=== PATIENT | male | born 1960 | race African-American/Black ===

== ENCOUNTER 2018-06-22 05:12 | Inpatient (IN) | payer OTHER ==
[2018-06-22] VITALS (11 sets, daily range): BP systolic 120–171; BP diastolic 69–104
[~2018-06-22] VITALS: Ht 172.7 cm; Wt 93.0 kg
[~2018-06-22 05:12] MED LIST: ALBUTEROL SULF8.5 GM INH; ATORVASTATIN CA40 MG ORAL; CARVEDILOL6.25 MG ORAL; FUROSEMIDE20 M1 ORAL; LISINOPRIL10 MG ORAL; POTASSIUM CHLO10 ME3 ORAL; SPIRONOLACTONE25 MG ORAL
[2018-06-22] MEDS ORDERED: LR 1000ml 1,000 ML IVLG SCH (06:32)
[2018-06-22] MEDS ORDERED: Propofol 1,000mg/ 100ml btl IV ONE ×2 (06:36→07:30)
[2018-06-22] MEDS ORDERED: Zemuron 50mg/5ml Inj IV ONE (06:37)
[2018-06-22] MEDS ORDERED: Midazolam 2mg/2ml Inj IVP PRN (06:45)
[2018-06-22] MEDS ORDERED: Metoclopramide 10mg/2ml Inj IVP PRN (06:45)
[2018-06-22] MEDS ORDERED: Norco 5mg/325mg tab ORAL PRN (06:45)
[2018-06-22] MEDS ORDERED: Labetalol 5mg/ml 20ml vial IV PRN (06:45)
[2018-06-22] MEDS ORDERED: Acetaminophen (Non formulary) 100 ML IV ONE (06:45)
[2018-06-22] MEDS ORDERED: Ketorolac 30mg Inj IV PRN ×2 (06:45)
[2018-06-22] MEDS ORDERED: LORazepam Inj 2mg/ml 1ml IV PRN (06:45)
[2018-06-22] MEDS ORDERED: fentaNYL 100 mcg/2 mL IV PRN (06:45)
[2018-06-22] MEDS ORDERED: Atropine Inj 1mg/10ml Syr IV PRN (06:45)
[2018-06-22] MEDS ORDERED: HYDROcodone/Acetamin 7.5/325 tab ORAL PRN (06:45)
[2018-06-22] MEDS ORDERED: Hydromorphone 0.5mg/0.5ml inj IVP PRN (06:45)
[2018-06-22] MEDS ORDERED: DiphenhydrAMINE 50mg/ml Inj IVP PRN ×2 (06:45→15:30)
[2018-06-22] MEDS ORDERED: oxyCODONE HCL/Acetaminophen 5/325mg ORAL PRN (06:45)
--- NOTE | 2018-06-22 07:02 | Anethesia Preoperative Eval ---
Anesthesia Pre-op PMH/ROS General Date of Evaluation: Jun 22, 2018 Time of Evaluation: 07:31 Anesthesiologist: Ander ASA Score: ASA 3 Mallampati Score Class I : Soft palate, uvula, fauces, pillars visible Class II: Soft palate, uvula, fauces visible Class III: Soft palate, base of uvula visible Class IV: Only hard plate visible Mallampati Classification: Class II Surgeon: Rick Diagnosis: Back Pain Surgical Procedure: PLIF L3-S1 Anesthesia History: none Family History: no anesthesia problems Allergies: Coded Allergies: No Known Allergies (Unverified , 06/22/18) Medications: see eMAR Past Medical History Cardiovascular: Reports: HTN, CAD - CHF, other - HL Pulmonary: Reports: FELECIA Neurologic/Psychiatric: Reports: TIA Other: obesity - BMI 33 PSxH Narrative: R Shoulder Sx 2018 Anesthesia Pre-op Phys. Exam Physician Exam Last Vital Signs Date Time Temp Pulse Resp B/P (MAP) Pulse Ox O2 Delivery O2 Flow Rate FiO2 06/22/18 06:01 Room Air 06/22/18 06:00 97.5 62 18 124/69 (87) 99 97.5 Constitutional: NAD Neurologic: CN 2-12 intact Cardiovascular: RRR Respiratory: CTA Gastrointestinal: S/NT/ND Airway Exam Mallampati Score: Class II MO: full ROM: limited Teeth: missing, intact Anesthesia Pre-op A/P Risk Assessment & Plan Assessment: ASA 3 Plan: GA, SED, GlideScope Go Status Change Before Surgery: No Pre-Antibiotics Dru Grams Ancef IV Given Within 1 Hr of Incision: Yes Time Given: 08:01 Brain Worthington MD Jun 22, 2018 07:02
--- NOTE | 2018-06-22 07:03 | Immediate Post-Op Evaluation ---
Immediate Post-Op Evalulation Immediate Post-Op Evalulation Procedure: PLIF L3-S1 Date of Evaluation: Jun 22, 2018 Time of Evaluation: 15:49 IV Fluids: 900 LR Blood Products: 0 Estimated Blood Loss: 200 Urinary Output: 200 Blood Pressure Systolic: 171 Blood Pressure Diastolic: 102 Pulse Rate: 71 Respiratory Rate: 16 O2 Sat by Pulse Oximetry: 100 Temperature (Fahrenheit): 97 Pain Score (1-10): 3 Nausea: No Vomiting: No Complications 0 Patient Status: awake, reacts, patent, extubated, none Hydration Status: adequate Dru Grams Ancef IV Given Within 1 Hr of Incision: Yes Time Given: 08:01 Brain Worthington MD Jun 22, 2018 07:03
[2018-06-22] MEDS ORDERED: Dexamethasone 4mg/ml vial ONE (07:04)
[2018-06-22] MEDS ORDERED: Lidocaine 1% MPF 10mg/ml 5ml ONE ×2 (07:04→14:11)
[2018-06-22] MEDS ORDERED: Sodium Chloride 10ml vial INJ ONE (07:04)
[2018-06-22] MEDS ORDERED: Vancomycin 1gm inj IVPB ONE (07:07)
[2018-06-22] MEDS ORDERED: Thrombin 5000 units TOPIC ONE (07:08)
[2018-06-22] MEDS ORDERED: Thrombin 5000 units spray kit TOPIC ONE (07:08)
[2018-06-22] MEDS ORDERED: Gelfoam Absorbable 1gm powder pkt TOPIC ONE (07:08)
[2018-06-22] MEDS ORDERED: Bupivacaine 0.5% Inj 30 ml vial INJ ONE (07:08)
[2018-06-22] MEDS ORDERED: Gelfoam Size TOPIC ONE (07:08)
[2018-06-22] MEDS ORDERED: EPINEPHrine 1mg/1ml Amp ONE (07:09)
[2018-06-22] MEDS ORDERED: Bacitracin 50000 Units Vial ONE ×2 (07:09→14:00)
[2018-06-22] MEDS ORDERED: fentaNYL 100 mcg/2 mL IV ONE ×3 (07:23→13:29)
[2018-06-22] MEDS ORDERED: Sterile Water Irrig 1000ml IRRIG ONE (07:30)
[2018-06-22] MEDS ORDERED: LR 1000ml ONE (07:30)
[2018-06-22] MEDS ORDERED: NS Irrig 1000ml ONE (07:30)
--- NOTE | 2018-06-22 07:41 | Pre-Procedure Note/Attestation ---
Pre-Procedure Note/Attestation Complete Prior to Procedure Planned Procedure: bilateral Procedure Narrative: L3-S1 left PLIF with extended decompression Indications for Procedure Pre-Operative Diagnosis: L3-S1 stenosis Attestation I attest that I discussed the nature of the procedure; its benefits; risks and complications; and alternatives (and the risks and benefits of such alternatives ), prior to the procedure, with the patient (or the patient's legal patient accounting representative). I attest that, if there was a reasonable possibility of needing a blood transfusion, the patient (or the patient's legal patient accounting representative) was given the [facility] standardized written summary, pursuant to the Bertram Diogo Blood Safety Act ([place] Health and Safety Code # 1645, as amended). I attest that I re-evaluated the patient just prior to the surgery and that there has been no change in the patient's H&P, except as documented below: Ricardo Cabrera Jun 22, 2018 07:41
[2018-06-22] MEDS ORDERED: ePHEDrine 50mg/ml Inj ONE (07:55)
[2018-06-22] MEDS ORDERED: Lidocaine 1% Plain 30 ml INJ ONE ×3 (07:56→12:10)
[2018-06-22] MEDS ORDERED: Propofol 200mg/20ml IV ONE (14:11)
[2018-06-22] MEDS ORDERED: Neostigmine 1mg/ml 10ml Inj ONE (14:47)
[2018-06-22] MEDS ORDERED: Glycopyrrolate 0.2mg/ml 1ml Vial ONE (14:47)
[2018-06-22] MEDS ORDERED: NS w/KCl 20mEq 1,000 ML IV SCH (15:25)
[2018-06-22] MEDS ORDERED: Rate Change PCA 1 Each MISC PRN (15:30)
[2018-06-22] MEDS ORDERED: Naloxone 0.4mg/ml Inj IVP PRN (15:30)
[2018-06-22] MEDS ORDERED: PCA Education Pamphlet MISC ONE (15:30)
[2018-06-22] MEDS ORDERED: PCA HYDROmorphone 1mg/ml 30 ML IV PRN ×2 (15:30)
--- NOTE | 2018-06-22 15:35 | Brief Operative Note ---
Immediate Post Operative Note Operative Note Pre-op Diagnosis: L3-S1 stenosis Procedure: L3-S1 PLIF Post-op Diagnosis: same as pre-op Surgeon: Dr Cabrera Dental Therapist: Dr Owen Anesthesiologist: Dr Worthington Anesthesia: general Specimen: yes Complications: none Condition: stable Fluids: NA Estimated Blood Loss: volume - 400 ml Drains: none Implant(s) used?: Yes - Next spine Ricardo Cabrera Jun 22, 2018 15:35
--- NOTE | 2018-06-22 16:03 | Diagnostic Imaging Report ---
Indication: Pain, intraoperative imaging Technique: Intraoperative images Total fluoroscopy time 11.1 seconds. Total dose 3.87 mg Number of images: 3 Comparison: none Findings: Intraoperative images demonstrate surgical tool projected posterior to what is presumably the L4-5 disc. Subsequent images demonstrate posterior fusion hardware bridging L3-S1, and disc spacers at L3-4, L4-5, and L5-S1 Impression: Intraoperative imaging, as described
[2018-06-22] MEDS ORDERED: ceFAZolin sod 1 GM in D5W 55 ML IV SCH (18:00)
[2018-06-22] MEDS ORDERED: Docusate 100mg cap ORAL SCH (18:00)
[2018-06-22] MEDS: Methocarbamol 750mg tab ORAL SCH ×2 (18:35→20:59)
[2018-06-22] MEDS ORDERED: PCA shift volume MISC SCH (19:00)
[2018-06-22] MEDS ORDERED: oxyCONTIN 10mg tab ORAL SCH (21:00)
[2018-06-22] MEDS ORDERED: Carvedilol 6.25mg Tab ORAL SCH (21:00)
[2018-06-22] MEDS ORDERED: Atorvastatin 20mg tab ORAL SCH (21:00)
--- NOTE | 2018-06-22 23:52 | General Progress Note ---
Assessment/Plan Status Narrative PMHchf hypertenison FELECIA Assessment/Plan hypertenison chf diastolic dysfunction sleep panea obesity difficulty wtih the mckinney cath Subjective Date patient seen: Jun 22, 2018 Time patient seen: 19:10 Constitutional: Reports: no symptoms HEENT: Reports: no symptoms Cardiovascular: Reports: no symptoms Allergies: Coded Allergies: No Known Allergies (Unverified , 06/22/18) Subjective patient was seen poastop and at thzat time no sob no berkley stpain Objective Last 24 Hour Vital Signs Date Time Temp Pulse Resp B/P (MAP) Pulse Ox O2 Delivery O2 Flow Rate FiO2 06/22/18 23:30 97.8 83 20 152/86 (108) 100 97.8 06/22/18 21:00 Nasal Cannula 2.0 06/22/18 21:00 79 120/75 06/22/18 20:20 99 Nasal Cannula 3.0 32 06/22/18 20:20 Nasal Cannula 3.0 32 06/22/18 20:00 97.5 79 19 120/75 (90) 100 97.5 06/22/18 20:00 19 06/22/18 17:30 18 06/22/18 17:00 Nasal Cannula 3.0 06/22/18 17:00 97.8 61 16 153/83 100 Nasal Cannula 3 100 97.8 06/22/18 17:00 98.2 65 18 154/77 (102) 100 98.2 06/22/18 17:00 98.2 65 18 160/79 (106) 100 98.2 06/22/18 17:00 18 06/22/18 16:45 56 15 150/82 100 Nasal Cannula 3 100 06/22/18 16:30 59 14 157/85 100 Nasal Cannula 3 100 06/22/18 16:30 18 06/22/18 16:15 15 06/22/18 16:15 63 15 154/81 100 Nasal Cannula 3 100 06/22/18 16:00 14 06/22/18 16:00 67 16 157/85 100 Simple Mask 6 100 06/22/18 15:50 62 18 154/87 100 Simple Mask 6 100 06/22/18 15:50 18 06/22/18 15:45 63 14 169/98 100 Simple Mask 6 100 06/22/18 15:38 97.2 72 16 171/104 100 Simple Mask 6 100 97.2 06/22/18 15:38 18 06/22/18 15:38 206.6 71 16 100 06/22/18 06:01 Room Air 06/22/18 06:00 97.5 62 18 124/69 (87) 99 97.5 Intake and Output 06/21/18 06/22/18 19:00 07:00 # Voids 1 Laboratory Tests 06/22/18 23:29: Troponin I [Pending] Height (Feet): 5 Height (Inches): 8.00 Weight (Pounds): 205 General Appearance: WD/WN Cardiovascular: normal rate, regular rhythm, no JVD Respiratory/Chest: lungs clear Abdomen: soft Lincoln Macias MD Jun 22, 2018 23:52
[2018-06-23] VITALS (24 sets, daily range): BP systolic 86–146; BP diastolic 37–87
[2018-06-23 00:05] LABS: ANION GAP 6 mmol/L (5-15); BLOOD UREA NITROGEN 18 mg/dL (7-18); CALCIUM 8.4 MG/DL (8.5-10.1); CARBON DIOXIDE 27 MMOL/L (21-32); CHLORIDE 103 MMOL/L (98-107); CREATININE 1.5 MG/DL (0.55-1.30); POTASSIUM 4.7 MMOL/L (3.5-5.1); SODIUM 136 MMOL/L (136-145)
[2018-06-23 00:12] LABS: ALANINE AMINOTRANSFERASE 50 U/L (12-78); ALBUMIN 3.4 G/DL (3.4-5.0); ALBUMIN/GLOBULIN RATIO 0.9 (1.0-2.7); ALKALINE PHOSPHATASE 76 U/L (46-116); ASPARTATE AMINO TRANSFERASE 169 U/L (15-37); BILIRUBIN,TOTAL 0.5 MG/DL (0.2-1.0)
[2018-06-23 00:15] LABS: BASOPHILS % (AUTO) 0.2 % (0.0-2.0); EOSINOPHILS % (AUTO) 0.1 % (0.0-3.0); HEMATOCRIT 36.5 % (42.0-52.0); HEMOGLOBIN 12.2 G/DL (14.2-18.0); LYMPHOCYTES % (AUTO) 5.6 % (20.0-45.0); MEAN CORPUSCULAR VOLUME 84 FL (80-99); MONOCYTES % (AUTO) 9.7 % (1.0-10.0); NEUTROPHILS % (AUTO) 84.4 % (45.0-75.0); PLATELET COUNT 215 K/UL (150-450); RED BLOOD COUNT 4.33 M/UL (4.70-6.10); RED CELL DISTRIBUTION WIDTH 11.4 % (11.6-14.8); WHITE BLOOD COUNT 17.6 K/UL (4.8-10.8)
[2018-06-23] MEDS ORDERED: PCA HYDROmorphone 1mg/ml 30 ML IV PRN (01:30)
[2018-06-23] MEDS ORDERED: Naloxone 0.4mg/ml Inj IVP PRN (01:31)
[2018-06-23] MEDS ORDERED: Nitroglycerin Subl 0.4mg tab SL PRN ×2 (01:35)
[2018-06-23] MEDS: ceFAZolin sod 1 GM in D5W 55 ML IV SCH ×2 (01:49→10:00)
[2018-06-23] MEDS ORDERED: DiphenhydrAMINE 50mg/ml Inj IVP PRN (03:30)
[2018-06-23] MEDS ORDERED: Isovue-370 150ml vial INJ PRN ×2 (05:30→08:00)
--- NOTE | 2018-06-23 06:30 | History and Physical Report ---
DATE OF ADMISSION: 06/22/2018 HISTORY OF PRESENT ILLNESS: I saw the patient at 1716 hours this p.m. I was paged the patient at 2315 hours. This is an unfortunate male, who was admitted to hospital to undergo spine surgery. He has had a history of congestive heart failure, which appears to be diastolic now with an EF of 55%. He was seen and evaluated by his fish roe processor, was cleared to undergo surgery, and subsequently underwent spine surgery. He is status post L3-S1 posterior lumbar interbody fusion. Estimated blood loss was 400 mL. There is no postoperative CBC ordered on the patient. ____, CBC and CMP were ordered on the patient. Nonetheless, EKG was performed and the patient shows normal sinus rhythm. There is no ST elevation. There is T-wave abnormality in I and aVL. Also, while looking into the patient's History and Physical from fish roe processor, it seems that the patient has had history of nonischemic cardiomyopathy, grossly normal , left ventricular ejection fraction has normalized. PVC, not likely the cause of cardiomyopathy. He was cleared to undergo surgery. His preop evaluation was on 06/17/2018. PAST MEDICAL HISTORY: Congestive heart failure with ejection fraction of 25%, it has gone to 55%. PAST SURGICAL HISTORY: None. FAMILY HISTORY: None noted. SOCIAL HISTORY: The patient has had history of marijuana and cocaine use. MEDICATIONS: Prior to admission includes, 1. Lipitor 40 mg a day. 2. Albuterol. 3. Carvedilol. 4. Lasix 20 mg. 5. Lisinopril 10 mg. 6. KCl 10 mEq. 7. Spironolactone 25 mg. PHYSICAL EXAMINATION: HEENT: Normocephalic and atraumatic. . NECK: No JVD. No carotid bruit. LUNGS: Clear. HEART: S1 and S2 regular. ABDOMEN: Soft. SKIN: Wound has slight oozing. IMPRESSION: 1. This is an unfortunate male, status post posterior lumbar interbody fusion. Intraoperative blood loss was significant including 400 mL. 2. The patient postoperatively has chest pain includes right-sided and left-sided pain. 3. Admitted to the intensive care unit. 4. Monitor the patient closely. 5. Oxygen supplement to be given to the patient. 6. Control the blood pressure. 7. Nitroglycerin will be given to the patient. 8. Unable to anticoagulate by aspirin. 9. As the patient is at risk of bleeding and subsequently if he has significant bleeding, he can get an irreversible spine damage and can become ____. The patient understands that he is at risk for having myocardial infarction at this time. 10. The patient will be ruled out for myocardial infarction. 11. The patient will be given beta-blockers, lower the blood pressure, and transfer to the intensive care unit. Monitor closely. Cardiology consultation will be obtained. 12. At this time, he is not a patient to have any acceptable regimen to undergo any cardiac intervention. Transfer to intensive care unit and monitor. Discussed with Dr. Cabrera, the spine surgeon. Lincoln Macias M.D. DR: FUENTES JOB#: [id number] CC: TULIO
[2018-06-23 06:57] LABS: BASOPHILS % (AUTO) 0.9 % (0.0-2.0); HEMATOCRIT 32.5 % (42.0-52.0); HEMOGLOBIN 10.9 G/DL (14.2-18.0); LYMPHOCYTES % (AUTO) 8.5 % (20.0-45.0); MEAN CORPUSCULAR VOLUME 83 FL (80-99); MONOCYTES % (AUTO) 10.6 % (1.0-10.0); PLATELET COUNT 186 K/UL (150-450); RED BLOOD COUNT 3.92 M/UL (4.70-6.10); RED CELL DISTRIBUTION WIDTH 11.4 % (11.6-14.8); WHITE BLOOD COUNT 14.1 K/UL (4.8-10.8)
[2018-06-23] MEDS: PCA shift volume MISC SCH ×2 (07:19→19:11)
[2018-06-23] MEDS ORDERED: Sodium Chloride 500ML 500 ML IV ONE (08:10)
--- NOTE | 2018-06-23 08:45 | Diagnostic Imaging Report ---
Indication: Dyspnea Comparison: None A single view chest radiograph was obtained. Findings: Cardiomediastinal appearance is within normal limits for age. Pulmonary vascularity is appropriate. The diaphragmatic contour is smooth and costophrenic angles are sharp. No pleural effusions are identified. The bones are unremarkable. Impression: No acute findings
[2018-06-23] MEDS: Spironolactone 25mg tab ORAL SCH (08:59)
[2018-06-23] MEDS: Docusate 100mg cap ORAL SCH ×2 (08:59→18:02)
[2018-06-23] MEDS: oxyCONTIN 10mg tab ORAL SCH ×2 (08:59→20:50)
[2018-06-23] MEDS ORDERED: Spironolactone 25mg tab ORAL SCH (09:00)
[2018-06-23] MEDS ORDERED: Carvedilol 6.25mg Tab ORAL SCH (09:00)
[2018-06-23] MEDS: Lisinopril 10mg tab ORAL SCH (09:00)
[2018-06-23] MEDS ORDERED: Rate Change PCA 1 Each MISC PRN (09:00)
[2018-06-23] MEDS: Methocarbamol 750mg tab ORAL SCH ×4 (09:00→20:51)
[2018-06-23] MEDS ORDERED: Lisinopril 10mg tab ORAL SCH (09:00)
--- NOTE | 2018-06-23 09:55 | Diagnostic Imaging Report ---
Indication: Chest pain Technique: Continuous helical transaxial imaging of the chest was obtained from the thoracic inlet to the upper abdomen during rapid intravenous contrast administration. Arterial phase of enhancement obtained. Coronal 2-D reformats were also obtained and maximum intensity projection images in multiple planes. Study obtained in a Siemens sensation [address] Automatic Exposure Control was utilized. Total Dose length Product (DLP): 878.[address] Dose Index Volume (CTDIvol): 25.89 mGy Comparison: None Findings: There is a prominent filling defect within the proximal branch of the left lower lobe extending into most of the segmental vessels. Findings concordant with the previous study obtained nuclear medicine VQ scan which showed a prominent perfusion defect involving the left lower lobe. The study was interpreted as high probability for pulmonary embolus. There is also filling defect involving anterior segment branch of the right lower lobe. Upper lobe branches appear clear. The main pulmonary artery and the right and left pulmonary artery trunks are clear. The aorta is unremarkable. Mild posterior basilar atelectasis demonstrated. No consolidation identified. No adenopathy, pleural effusion or pericardial effusion identified. There is subcutaneous edema within the anterior chest wall demonstrated. Visualized part of the upper abdomen is unremarkable. IMPRESSION: Evidence of pulmonary embolus without prominent focus involving the proximal left lower lobe pulmonary artery branch. Involvement of the one of the segmental vessels in the right lower lobe also noted. Mild basilar atelectasis. The CT scanner at [facility] is accredited by the [employer] and the scans are performed using dose optimization techniques as appropriate to a performed exam including Automatic Exposure control.
--- NOTE | 2018-06-23 10:00 | Diagnostic Imaging Report ---
Indication: Chest pain Technique: A ventilation/perfusion scan was performed. Ventilation was performed utilizing 40 mCi of Technetium 99m-DTPA. Perfusion was performed with 5 mCi of technetium 99m-MAA injected intravenously. Multiple side by side projections obtained. Findings: There is a prominent perfusion defect with normal ventilation involving the left lower lobe. Chest x-ray shows clear lungs. Impression: High probability for pulmonary embolus involving the left lower lobe. [facility] has communicated the preliminary results to the Emergency Department. Their findings are concordant with this report. Critical value communication. Findings were conveyed via telephone with Lopez Patel 06/23/18 at 04:[address] [facility] physician [address] Renner.
[2018-06-23 10:28] LABS: ALANINE AMINOTRANSFERASE 52 U/L (12-78); ALBUMIN 3.4 G/DL (3.4-5.0); ALBUMIN/GLOBULIN RATIO 1.1 (1.0-2.7); ALKALINE PHOSPHATASE 75 U/L (46-116); ANION GAP 10 mmol/L (5-15); ASPARTATE AMINO TRANSFERASE 181 U/L (15-37); BILIRUBIN,TOTAL 0.4 MG/DL (0.2-1.0); BLOOD UREA NITROGEN 18 mg/dL (7-18); CALCIUM 8.4 MG/DL (8.5-10.1); CARBON DIOXIDE 24 MMOL/L (21-32); CHLORIDE 104 MMOL/L (98-107); CREATININE 1.4 MG/DL (0.55-1.30); POTASSIUM 5.3 MMOL/L (3.5-5.1); SODIUM 138 MMOL/L (136-145)
[2018-06-23] MEDS ORDERED: Lidocaine 1% Plain 30 ml INJ PRN (10:30)
--- NOTE | 2018-06-23 10:42 | Pulmonolgy Critical Care Note ---
Critical Care - Asmt/Plan Problems: (1) Pulmonary embolism (2) History of CHF (congestive heart failure) (3) Hypertension (4) Lumbar stenosis Respiratory: monitor respiratory rate, adjust FIO2, CXR Cardiac: continue to monitor HR/BP Renal: F/U I&O, check electrolytes Gastrointestinal: continue feedings/current rate Hematologic: monitor H/H, transfuse if hgb<8.5 Neurologic: PRN Morphine, keep patient comfortable Affect: PRN ativan Prophylaxis: Heparin Notes Reviewed: wafer mounter, cardio, renal Discussed with: nurses, consultants, employment case managerresidential manager - Objective Last 24 Hour Vital Signs Date Time Temp Pulse Resp B/P (MAP) Pulse Ox O2 Delivery O2 Flow Rate FiO2 06/23/18 10:00 89 24 109/63 (78) 98 06/23/18 09:45 90 26 114/62 (79) 98 06/23/18 09:00 126/69 06/23/18 08:59 82 126/69 06/23/18 08:00 98 19 104/57 (73) 99 06/23/18 07:00 82 18 126/69 (88) 100 06/23/18 06:00 86 19 133/66 (88) 100 06/23/18 05:00 97.8 88 19 134/74 (94) 100 97.8 06/23/18 04:00 Room Air 06/23/18 04:00 97.8 83 19 138/63 (88) 100 97.8 06/23/18 04:00 19 06/23/18 03:00 90 19 122/74 (90) 100 06/23/18 02:00 78 19 114/76 (89) 100 06/23/18 01:00 76 17 146/87 (106) 100 06/23/18 00:08 146/84 06/23/18 00:00 97.8 81 20 122/75 (91) 100 97.8 06/23/18 00:00 Room Air 06/23/18 00:00 19 06/22/18 23:30 97.8 83 20 152/86 (108) 100 97.8 06/22/18 21:00 Nasal Cannula 2.0 06/22/18 21:00 79 120/75 06/22/18 20:20 99 Nasal Cannula 3.0 32 06/22/18 20:20 Nasal Cannula 3.0 32 06/22/18 20:00 97.5 79 19 120/75 (90) 100 97.5 06/22/18 20:00 19 06/22/18 17:30 18 06/22/18 17:00 Nasal Cannula 3.0 06/22/18 17:00 97.8 61 16 153/83 100 Nasal Cannula 3 100 97.8 06/22/18 17:00 98.2 65 18 154/77 (102) 100 98.2 06/22/18 17:00 98.2 65 18 160/79 (106) 100 98.2 06/22/18 17:00 18 06/22/18 16:45 56 15 150/82 100 Nasal Cannula 3 100 06/22/18 16:30 59 14 157/85 100 Nasal Cannula 3 100 06/22/18 16:30 18 06/22/18 16:15 15 06/22/18 16:15 63 15 154/81 100 Nasal Cannula 3 100 06/22/18 16:00 14 06/22/18 16:00 67 16 157/85 100 Simple Mask 6 100 06/22/18 15:50 62 18 154/87 100 Simple Mask 6 100 06/22/18 15:50 18 06/22/18 15:45 63 14 169/98 100 Simple Mask 6 100 06/22/18 15:38 97.2 72 16 171/104 100 Simple Mask 6 100 97.2 06/22/18 15:38 18 06/22/18 15:38 206.6 71 16 100 Status: awake Condition: improving HEENT: atraumatic Neck: full ROM Heart: HR/BP stable Abdomen: soft Extremities: no C/C/E Critical Care - Subjective ROS Limited/Unobtainable: Yes ICU Day: 1 Interval Events: 57 year old male with hx of CHF, had spine surgery yesterday, developed acute PE , transferred to ICU for further management. Pt can not anticoagulated because of spine surgery. I explained to him the IVC filter and he is agreeable to get one. FI02: 32 I&O: Intake and Output 06/22/18 06/23/18 19:00 07:00 Intake Total 430 ml 835 ml Output Total 850 ml 200 ml Balance -420 ml 635 ml Intake Oral 75 ml 30 ml IV Total 355 ml 805 ml Output Urine Total 450 ml 200 ml Estimated Blood Loss 400 ml Labs: Laboratory Tests Test 06/22/18 23:27 06/22/18 23:29 06/22/18 23:50 06/23/18 06:25 Sodium Level 136 MMOL/L (136-145) 138 MMOL/L (136-145) Potassium Level 4.7 MMOL/L (3.5-5.1) 5.3 MMOL/L (3.5-5.1) H Chloride Level 103 MMOL/L (98-107) 104 MMOL/L (98-107) Carbon Dioxide Level 27 MMOL/L (21-32) 24 MMOL/L (21-32) Anion Gap 6 mmol/L (5-15) 10 mmol/L (5-15) Blood Urea Nitrogen 18 mg/dL (7-18) 18 mg/dL (7-18) Creatinine 1.5 MG/DL (0.55-1.30) H 1.4 MG/DL (0.55-1.30) H Estimat Glomerular Filtration Rate 58.1 mL/min (>60) > 60 mL/min (>60) Glucose Level 178 MG/DL (74-106) H 181 MG/DL (74-106) H Calcium Level 8.4 MG/DL (8.5-10.1) L 8.4 MG/DL (8.5-10.1) L Total Bilirubin 0.5 MG/DL (0.2-1.0) 0.4 MG/DL (0.2-1.0) Aspartate Amino Transf (AST/SGOT) 169 U/L (15-37) H 181 U/L (15-37) H Alanine Aminotransferase (ALT/SGPT) 50 U/L (12-78) 52 U/L (12-78) Alkaline Phosphatase 76 U/L (46-116) 75 U/L (46-116) Total Protein 7.1 G/DL (6.4-8.2) 6.5 G/DL (6.4-8.2) Albumin 3.4 G/DL (3.4-5.0) 3.4 G/DL (3.4-5.0) Globulin 3.7 g/dL 3.1 g/dL Albumin/Globulin Ratio 0.9 (1.0-2.7) L 1.1 (1.0-2.7) Troponin I 0.030 ng/mL (0.000-0.056) 0.036 ng/mL (0.000-0.056) White Blood Count 17.6 K/UL (4.8-10.8) H 14.1 K/UL (4.8-10.8) H Red Blood Count 4.33 M/UL (4.70-6.10) L 3.92 M/UL (4.70-6.10) L Hemoglobin 12.2 G/DL (14.2-18.0) L 10.9 G/DL (14.2-18.0) L Hematocrit 36.5 % (42.0-52.0) L 32.5 % (42.0-52.0) L Mean Corpuscular Volume 84 FL (80-99) 83 FL (80-99) Mean Corpuscular Hemoglobin 28.2 PG (27.0-31.0) 27.7 PG (27.0-31.0) Mean Corpuscular Hemoglobin Concent 33.5 G/DL (32.0-36.0) 33.4 G/DL (32.0-36.0) Red Cell Distribution Width 11.4 % (11.6-14.8) L 11.4 % (11.6-14.8) L Platelet Count 215 K/UL (150-450) 186 K/UL (150-450) Mean Platelet Volume 6.6 FL (6.5-10.1) 7.4 FL (6.5-10.1) Neutrophils (%) (Auto) 84.4 % (45.0-75.0) H 80.0 % (45.0-75.0) H Lymphocytes (%) (Auto) 5.6 % (20.0-45.0) L 8.5 % (20.0-45.0) L Monocytes (%) (Auto) 9.7 % (1.0-10.0) 10.6 % (1.0-10.0) H Eosinophils (%) (Auto) 0.1 % (0.0-3.0) 0.0 % (0.0-3.0) Basophils (%) (Auto) 0.2 % (0.0-2.0) 0.9 % (0.0-2.0) Test 06/23/18 08:00 Urine Opiates Screen Negative (NEGATIVE) Urine Barbiturates Screen Negative (NEGATIVE) Phencyclidine (PCP) Screen Negative (NEGATIVE) Urine Amphetamines Screen Negative (NEGATIVE) Urine Benzodiazepines Screen Positive (NEGATIVE) H Urine Cocaine Screen Negative (NEGATIVE) Urine Marijuana (THC) Screen Positive (NEGATIVE) H Patricia Melton MD Jun 23, 2018 10:42
--- NOTE | 2018-06-23 14:34 | 48 Hour Post Anesthesia Eval ---
Post Anesthesia Evaluation Procedure: PLIF L3-S1 Date of Evaluation: Jun 23, 2018 Time of Evaluation: 14:33 Blood Pressure Systolic: 129 0: 58 Pulse Rate: 68 Respiratory Rate: 22 Temperature (Fahrenheit): 97.8 O2 Sat by Pulse Oximetry: 98 Airway: patent Nausea: No Vomiting: No Pain Intensity: 3 Hydration Status: adequate Cardiopulmonary Status: stable Mental Status/LOC: patient returned to baseline Follow-up Care/Observations: n/a Post-Anesthesia Complications: none Follow-up care needed: N/A Michael Mendez MD Jun 23, 2018 14:34
--- NOTE | 2018-06-23 15:56 | Diagnostic Imaging Report ---
APPROVED REPORT CPT Code: 73124 BILATERAL: Imaging reveals a patent deep venous system bilaterally. There is no evidence of thrombus within the femoral, popliteal or tibial segments. The greater saphenous veins are also within normal limits. Doppler indicates normal spontaneous flow within these segments
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
--- NOTE | 2018-06-23 17:45 | Progress Note ---
DATE: 06/23/2018 . The patient underwent thrombectomy surgery. the patient had bilateral chest pain. Troponin is negative. EKG is unchanged from prior to admission. I went and saw the patient. I transferred the patient to intensive care unit. A V/Q scan that was obtained on the patient, shows a high probability PE. The patient is hemodynamically stable. We will get a venous Doppler done. If the venous Doppler shows a large clot burden in the lower extremity, we will get IVC filter. At this time, he is not a candidate to undergo any type of evaluation due to the fact that he is going to bleed in the spine. Dr. Cabrera will tell us when the patient can be anticoagulated. Pulmonary consultation will be obtained. Lincoln Macias M.D. DR: FUENTES JOB#: [id number] CC:
[2018-06-23] MEDS: Carvedilol 12.5mg tab ORAL SCH (20:48)
[2018-06-23] MEDS: Atorvastatin 20mg tab ORAL SCH (20:49)
[2018-06-24] VITALS (23 sets, daily range): BP systolic 85–122; BP diastolic 41–99
[2018-06-24] MEDS: PCA shift volume MISC SCH (07:12)
--- NOTE | 2018-06-24 09:13 | Pulmonolgy Critical Care Note ---
Critical Care - Asmt/Plan Problems: (1) Pulmonary embolism (2) History of CHF (congestive heart failure) (3) Hypertension (4) Lumbar stenosis Respiratory: monitor respiratory rate, adjust FIO2, CXR Cardiac: continue to monitor HR/BP Renal: F/U I&O, check electrolytes Gastrointestinal: continue feedings/current rate Hematologic: transfuse if hgb<8.5 Neurologic: PRN Morphine, keep patient comfortable Prophylaxis: SCDs Disposition: keep in ICU Discussed with: nurses, consultants, disease case manager rnmortgage operations manager - Objective Last 24 Hour Vital Signs Date Time Temp Pulse Resp B/P (MAP) Pulse Ox O2 Delivery O2 Flow Rate FiO2 06/24/18 08:00 19 06/24/18 08:00 Room Air Room Air Room Air 06/24/18 08:00 98.5 76 19 119/55 (76) 99 98.5 06/24/18 07:00 83 19 116/48 (70) 100 06/24/18 06:00 81 19 113/70 (84) 100 06/24/18 05:00 76 17 113/67 (82) 99 06/24/18 04:00 19 06/24/18 04:00 Room Air 06/24/18 04:00 98.7 85 15 109/50 (69) 97 98.7 06/24/18 03:00 86 15 111/52 (71) 97 06/24/18 02:00 88 14 112/54 (73) 96 06/24/18 01:00 87 14 111/55 (73) 96 06/24/18 00:00 Room Air 06/24/18 00:00 19 06/24/18 00:00 97.8 94 14 101/58 (72) 95 97.8 06/23/18 23:00 99 15 88/62 (71) 97 06/23/18 22:35 97.8 06/23/18 22:05 98.3 06/23/18 22:00 102 22 98/56 (70) 97 06/23/18 21:00 94 19 102/60 (74) 97 06/23/18 20:50 98.2 06/23/18 20:48 91 102/60 06/23/18 20:00 19 06/23/18 20:00 Room Air 06/23/18 20:00 98.3 81 19 113/56 (75) 99 98.3 06/23/18 19:18 Room Air 06/23/18 19:18 99 Room Air 21 06/23/18 19:00 112 22 97/57 (70) 99 06/23/18 18:00 Room Air 06/23/18 18:00 96 20 86/60 (69) 99 06/23/18 17:00 94 20 112/76 (88) 99 06/23/18 16:00 19 06/23/18 16:00 97.9 94 29 112/76 (88) 99 97.9 06/23/18 16:00 Room Air 06/23/18 15:00 95 20 117/72 (87) 99 06/23/18 14:34 208.0 68 22 98 06/23/18 14:00 94 21 137/57 (83) 100 06/23/18 13:00 90 21 128/37 (67) 100 06/23/18 12:00 Room Air 06/23/18 12:00 19 06/23/18 12:00 98.3 73 22 128/60 (82) 99 98.3 06/23/18 11:00 81 18 122/55 (77) 100 06/23/18 10:00 89 24 109/63 (78) 98 06/23/18 09:45 90 26 114/62 (79) 98 Status: awake Condition: critical HEENT: atraumatic Neck: full ROM Heart: HR/BP stable Abdomen: soft, non-tender Extremities: no C/C/E, edema Micro: Microbiology Date/Time Source Procedure Growth Status 06/22/18 06:00 Nasal Nares MRSA Culture - Final NO METHICILLIN RESISTANT STAPH AUREUS... Complete Critical Care - Subjective ROS Limited/Unobtainable: No Condition: critical FI02: 21 Fluids: NS 75 cc/hour I&O: Intake and Output 06/23/18 06/24/18 19:00 07:00 Intake Total 1765 ml 1125 ml Output Total 1100 ml 400 ml Balance 665 ml 725 ml Intake Oral 710 ml 300 ml IV Total 1055 ml 825 ml Output Urine Total 1100 ml 400 ml # Voids 3 Labs: Laboratory Tests Test 06/23/18 12:15 Troponin I 0.032 ng/mL (0.000-0.056) Patricia Melton MD Jun 24, 2018 09:13
[2018-06-24] MEDS: Carvedilol 12.5mg tab ORAL SCH (09:40)
[2018-06-24] MEDS: Lisinopril 10mg tab ORAL SCH (09:40)
[2018-06-24] MEDS: Docusate 100mg cap ORAL SCH ×2 (09:40→17:35)
[2018-06-24] MEDS: Spironolactone 25mg tab ORAL SCH (09:41)
[2018-06-24] MEDS: oxyCONTIN 10mg tab ORAL SCH ×2 (09:42→20:52)
[2018-06-24] MEDS: Methocarbamol 750mg tab ORAL SCH ×4 (09:43→20:53)
[2018-06-24 10:35] LABS: BASOPHILS % (AUTO) 0.2 % (0.0-2.0); HEMATOCRIT 26.8 % (42.0-52.0); HEMOGLOBIN 8.9 G/DL (14.2-18.0); LYMPHOCYTES % (AUTO) 10.7 % (20.0-45.0); MEAN CORPUSCULAR VOLUME 85 FL (80-99); MONOCYTES % (AUTO) 11.5 % (1.0-10.0); NEUTROPHILS % (AUTO) 77.6 % (45.0-75.0); PLATELET COUNT 141 K/UL (150-450); RED BLOOD COUNT 3.15 M/UL (4.70-6.10); RED CELL DISTRIBUTION WIDTH 11.8 % (11.6-14.8); WHITE BLOOD COUNT 15.1 K/UL (4.8-10.8)
[2018-06-24 11:00] LABS: ALANINE AMINOTRANSFERASE 55 U/L (12-78); ALBUMIN 2.6 G/DL (3.4-5.0); ALBUMIN/GLOBULIN RATIO 0.7 (1.0-2.7); ALKALINE PHOSPHATASE 59 U/L (46-116); ANION GAP 7 mmol/L (5-15); ASPARTATE AMINO TRANSFERASE 157 U/L (15-37); BILIRUBIN,TOTAL 0.4 MG/DL (0.2-1.0); BLOOD UREA NITROGEN 18 mg/dL (7-18); CALCIUM 8.1 MG/DL (8.5-10.1); CARBON DIOXIDE 27 MMOL/L (21-32); CHLORIDE 106 MMOL/L (98-107); CREATININE 1.1 MG/DL (0.55-1.30); POTASSIUM 4.4 MMOL/L (3.5-5.1); SODIUM 140 MMOL/L (136-145)
[2018-06-24] MEDS ORDERED: Amiodarone 900 MG in D5W 500ml 482 ML IV SCH ×2 (12:45→18:00)
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
[2018-06-24] MEDS: D5 1/2NS 1,000 ML IV SCH (13:05)
[2018-06-24] MEDS ORDERED: Lidocaine 1% Plain 30 ml INJ ONE ×2 (14:00→14:01)
[2018-06-24] MEDS ORDERED: Rate Change PCA 1 Each MISC PRN (14:30)
[2018-06-24] MEDS ORDERED: Heparin 2000 units/Ns 1000ml 1,000 ML ONE (14:49)
[2018-06-24] MEDS ORDERED: Heparin 25,000u/D5W 500ml 500 ML IV SCH (18:30)
[2018-06-24] MEDS ORDERED: Heparin 5000 units/ml inj IV SCH (18:30)
[2018-06-24] MEDS ORDERED: Dyna-Hex 2% Top Sol 2oz TOPIC SCH (20:00)
[2018-06-24] MEDS: Carvedilol 6.25mg Tab ORAL SCH (20:50)
[2018-06-24] MEDS: Atorvastatin 20mg tab ORAL SCH (20:51)
[2018-06-24] MEDS ORDERED: Amiodarone 200mg tab ORAL SCH (21:00)
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
[2018-06-24] MEDS ORDERED: Heparin 5000 units/ml inj SUBQ SCH ×2 (22:00)
[2018-06-25] VITALS (20 sets, daily range): BP systolic 81–147; BP diastolic 42–112
[2018-06-25] MEDS ORDERED: Heparin 5000 units/ml inj IV SCH (03:00)
[2018-06-25] MEDS: Heparin 25,000u/D5W 500ml 500 ML IV SCH ×3 (03:13→14:09)
[2018-06-25 05:11] LABS: BASOPHILS % (AUTO) 0.9 % (0.0-2.0); HEMATOCRIT 24.1 % (42.0-52.0); HEMOGLOBIN 8.2 G/DL (14.2-18.0); LYMPHOCYTES % (AUTO) 16.6 % (20.0-45.0); MEAN CORPUSCULAR VOLUME 85 FL (80-99); MONOCYTES % (AUTO) 10.1 % (1.0-10.0); NEUTROPHILS % (AUTO) 72.5 % (45.0-75.0); PLATELET COUNT 132 K/UL (150-450); RED BLOOD COUNT 2.84 M/UL (4.70-6.10); RED CELL DISTRIBUTION WIDTH 11.4 % (11.6-14.8); WHITE BLOOD COUNT 13.8 K/UL (4.8-10.8)
[2018-06-25 05:24] LABS: ALANINE AMINOTRANSFERASE 56 U/L (12-78); ALBUMIN 2.4 G/DL (3.4-5.0); ALBUMIN/GLOBULIN RATIO 0.6 (1.0-2.7); ALKALINE PHOSPHATASE 60 U/L (46-116); ANION GAP 5 mmol/L (5-15); ASPARTATE AMINO TRANSFERASE 154 U/L (15-37); BILIRUBIN,TOTAL 0.5 MG/DL (0.2-1.0); BLOOD UREA NITROGEN 15 mg/dL (7-18); CALCIUM 8.1 MG/DL (8.5-10.1); CARBON DIOXIDE 27 MMOL/L (21-32); CHLORIDE 103 MMOL/L (98-107); CREATININE 1.1 MG/DL (0.55-1.30); PHOSPHORUS 1.3 MG/DL (2.5-4.9); POTASSIUM 4.1 MMOL/L (3.5-5.1); SODIUM 135 MMOL/L (136-145)
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
[2018-06-25] MEDS: oxyCONTIN 10mg tab ORAL SCH ×2 (08:34→20:25)
[2018-06-25] MEDS: Methocarbamol 750mg tab ORAL SCH ×4 (08:36→20:23)
[2018-06-25] MEDS: Docusate 100mg cap ORAL SCH ×2 (08:36→18:30)
[2018-06-25] MEDS: Carvedilol 6.25mg Tab ORAL SCH ×2 (08:37→20:22)
[2018-06-25] MEDS: Lisinopril 10mg tab ORAL SCH (08:37)
[2018-06-25] MEDS: Amiodarone 200mg tab ORAL SCH (08:38)
[2018-06-25] MEDS: Spironolactone 25mg tab ORAL SCH (08:38)
[2018-06-25] MEDS ORDERED: Sodium Phosphate 30 MM in NS 275 ML IV ONE (10:00)
[2018-06-25] MEDS: D5 1/2NS 1,000 ML IV SCH (13:15)
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
[2018-06-25] MEDS ORDERED: Milk of Magnesia 30ml Ud ORAL PRN (18:15)
[2018-06-25] MEDS ORDERED: D5 1/2NS 1000ml IV ONE (18:33)
[2018-06-25] MEDS ORDERED: Tubing IV Secondary IV ONE (18:33)
[2018-06-25] MEDS ORDERED: NS 275ml ONE (18:33)
[2018-06-25] MEDS: Atorvastatin 20mg tab ORAL SCH (20:22)
[2018-06-26] VITALS: BP 132/72
--- NOTE | 2018-06-26 01:00 | Operative Note - Dictated ---
INDICATIONS FOR SURGERY: The patient is a 57-year-old presented to the clinic with signs and symptoms of severe low back pain and left greater than right lumbar radiculopathy. He has attempted and failed conservative measures of greater than six months. Surgical and nonsurgical options were discussed. The patient requested surgical interventions. RISKS AND BENEFITS DISCUSSION: The patient was appraised of all objectives, benefits, risks and potential complications of the procedure including, but not limited to worsening of current status and possible need for further procedures, the risk of infection, headaches, CSF leak, possible spinal cord injury resulting in paralysis, injury to major blood vessels causing hemorrhage, stroke, loss of language function, coma, and even . No assurance given whether the symptoms would improve following procedure. Informed consent was obtained and secured in the chart after the patient voiced understanding of these risks and decided to proceed with the operation. PREOPERATIVE DIAGNOSES: 1. L3, L4, and L5 bilateral pars defect. 2. Lumbar stenosis from L3 through S1. 3. Spondylolisthesis L3 to S1. 4. Back pain. 5. Left greater than right lumbar radiculopathy. POSTOPERATIVE DIAGNOSES: 1. L3, L4, and L5 bilateral pars defect. 2. Lumbar stenosis from L3 through S1. 3. Spondylolisthesis L3 to S1. 4. Back pain. 5. Left greater than right lumbar radiculopathy. OPERATION PERFORMED: 1. Left-sided L3-L4, L4-L5 and L5-S1 arthrodesis. 2. Posterior interbody technique combined with posterolateral technique. 3. Application of interbody device at L3-L4, L4-L5, and L5-S1. 4. Posterior segmental instrumentation from L3 to S1 using Nexxt spine instrumentation. 5. Lumbar 3, lumbar 4, lumbar 5, decompressive laminectomies beyond the extent of what is needed for interbody fusion. 6. Microscope. 7. Fluoroscope. 8. Neuromonitoring. 9. Bilateral facet injections at L3-L4, L4-L5 and L5-S1 including paraspinal injections for postoperative pain control. 10. Allograft. 11. Iliac crest bone graft from separate fascial incision. 12. modifier for greater than 120 minutes spent, more than normal medium time due to the extremely difficult anatomy due to the presence of the defect . SURGEON: Ricardo Cabrera M.D. FACTORY MAINTENANCE TECHNICIAN: Gilberto Owen M.D. ANESTHESIA: GETA. ANESTHESIOLOGIST: Brain Worthington M.D. ESTIMATED BLOOD LOSS: Approximately 400 mL. FINDINGS: Severe stenosis with spondylolisthesis and pars defects from L3-S1. SPECIMENS SENT: Bone and ligaments removed. COMPLICATIONS: None. TECHNIQUE: The patient was transferred to the operating room. He was sedated and intubated by the anesthesia team. Preoperative antibiotics were given. Eyes were taped shut after ointment was applied to prevent corneal abrasion. The patient was transferred to the operating table on an open Doroteo table in the prone position. A Oakley catheter had been inserted. Rosalina Hugger was placed over the lower body to maintain control of core body temperature. All pressure points were carefully padded. Neuromonitoring team placed the needles in appropriate position and baselines were obtained. C-arm was brought in and localization of the operative levels performed. Skin was prepped and draped in the standard surgical fashion. A time-out was taken. A linear incision was performed with a scalpel blade and dissection was carried down through the fascial layer and fascia was opened and dissection was continued over the lamina, facet joints and transverse processes from L2 through S1. Fluoroscope was used again to confirm the correct levels. At this point, using anatomical landmarks, pedicle screws were placed into L3, L4, L5 and S1 bilaterally using Nexxt spine instrumentation. Once the pedicle screws were placed, the microscope was brought in and attention was first placed towards the L5-S1 level where a left-sided complete facetectomy and laminectomy was carried out including dissection of the ligamentum flavum. Excellent decompression of the central canal, lateral recess was confirmed. Decompression was carried to the contralateral side confirming contralateral right-sided decompression beyond what is needed for placement of interbody device. Afterwards attention was paid towards the L5-S1 disk space where the disk space was entered and complete diskectomy was carried out. Afterwards arthrodesis of the end-plates was performed. Once done so, attention was paid towards the iliac crest where a separate fascial incision over the left iliac crest was made and through minimally invasive approach, iliac crest bone was harvested to the Corex device. Once done so, separate fascial incision was closed with suture. harvested bone graft was placed into a titanium cage from Nexxt spine instrumentation and this was placed into the disk space after appropriate sizing was done at L5-S1 level. Once the L5-S1 level was completed, the same process was repeated for the L4-L5 and L3-L4 level. Afterwards, copious amounts of antibiotic irrigation was performed. hemostasis was maintained throughout the entire procedure. Arthrodesis of the contralateral lamina on the right side including the facet joints was then performed and there remained autograft was then placed into the iliac crest bone graft on to the right side. Prior to placement of titanium rods, all the pedicle screws were stimulated using margin confirming no abnormal firing and also further confirming good placement of instrumentation. Afterwards, titanium sam was contoured appropriately and safely onto the screw tulips heads, screw capsules were placed and final tightening of the operated levels was performed. X-ray fluoroscopy was used throughout the entire case and final x-rays confirmed excellent positioning of all instrumentation. Watertight closure of the fascial layer was performed followed by reapproximation of subcutaneous level and subcutaneous areas and the skin edges were reapproximated as well. Skin glue was applied to the final layer. It should also be noted that prior to closure facet injections including paraspinal injection with marking was performed to help with postoperative pain control. All needle count, sponge count, and instrument counts were correct at the end of the case x2. Neuromonitoring signals were stable throughout the entire case. The patient was then transferred back to recovery in stable condition and the patient was examined after surgery in the recovery room and was able to move all extremities without difficulty. Ricardo Cabrera MD DR: Matt JOB#: [id number] CC:
[2018-06-26] MEDS: Heparin 25,000u/D5W 500ml 500 ML IV SCH ×2 (03:26→19:59)
[2018-06-26 04:00] VITALS: BP 121/74
[2018-06-26 07:18] LABS: HEMATOCRIT 23.6 % (42.0-52.0); HEMOGLOBIN 7.6 G/DL (14.2-18.0); MEAN CORPUSCULAR VOLUME 85 FL (80-99); PLATELET COUNT 169 K/UL (150-450); RED BLOOD COUNT 2.78 M/UL (4.70-6.10); RED CELL DISTRIBUTION WIDTH 11.6 % (11.6-14.8); WHITE BLOOD COUNT 10.9 K/UL (4.8-10.8)
[2018-06-26 08:15] LABS: PHOSPHORUS 2.5 MG/DL (2.5-4.9)
[2018-06-26 08:21] LABS: ANION GAP 1 mmol/L (5-15); BLOOD UREA NITROGEN 13 mg/dL (7-18); CARBON DIOXIDE 28 MMOL/L (21-32); CHLORIDE 102 MMOL/L (98-107); POTASSIUM 3.8 MMOL/L (3.5-5.1); SODIUM 136 MMOL/L (136-145)
[2018-06-26 08:32] VITALS: BP 114/65
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
[2018-06-26] MEDS: Methocarbamol 750mg tab ORAL SCH ×4 (09:36→21:49)
[2018-06-26] MEDS: Amiodarone 200mg tab ORAL SCH (09:36)
[2018-06-26] MEDS: Docusate 100mg cap ORAL SCH ×2 (09:36→17:14)
[2018-06-26] MEDS: Lisinopril 10mg tab ORAL SCH (09:37)
[2018-06-26] MEDS: oxyCONTIN 10mg tab ORAL SCH (09:37)
[2018-06-26] MEDS: Spironolactone 25mg tab ORAL SCH (09:37)
[2018-06-26] MEDS: Carvedilol 6.25mg Tab ORAL SCH ×2 (09:38→21:50)
[2018-06-26 12:00] VITALS: BP 120/71
[2018-06-26] MEDS: oxyCONTIN 20mg tab ORAL SCH ×2 (13:42→21:51)
[2018-06-26 16:00] VITALS: BP 111/61
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
[2018-06-26 20:00] VITALS: BP 121/60
[2018-06-26] MEDS: Atorvastatin 20mg tab ORAL SCH (21:50)
[2018-06-27] VITALS: BP 140/94
[2018-06-27 04:00] VITALS: BP 114/83
[2018-06-27 05:10] LABS: BASOPHILS % (AUTO) 0.4 % (0.0-2.0); EOSINOPHILS % (AUTO) 0.6 % (0.0-3.0); HEMATOCRIT 27.1 % (42.0-52.0); HEMOGLOBIN 8.9 G/DL (14.2-18.0); LYMPHOCYTES % (AUTO) 15.8 % (20.0-45.0); MEAN CORPUSCULAR VOLUME 83 FL (80-99); MONOCYTES % (AUTO) 12.5 % (1.0-10.0); NEUTROPHILS % (AUTO) 70.7 % (45.0-75.0); PLATELET COUNT 200 K/UL (150-450); RED BLOOD COUNT 3.25 M/UL (4.70-6.10); RED CELL DISTRIBUTION WIDTH 12.9 % (11.6-14.8); WHITE BLOOD COUNT 10.2 K/UL (4.8-10.8)
[2018-06-27 05:21] LABS: ANION GAP 4 mmol/L (5-15); BLOOD UREA NITROGEN 12 mg/dL (7-18); CALCIUM 8.8 MG/DL (8.5-10.1); CARBON DIOXIDE 29 MMOL/L (21-32); CHLORIDE 103 MMOL/L (98-107); POTASSIUM 4.2 MMOL/L (3.5-5.1); SODIUM 136 MMOL/L (136-145)
[2018-06-27] MEDS ORDERED: Heparin 5000 units/ml inj IV SCH (06:00)
[2018-06-27] MEDS: oxyCONTIN 20mg tab ORAL SCH ×3 (06:00→21:39)
[2018-06-27] MEDS: Heparin 25,000u/D5W 500ml 500 ML IV SCH ×4 (06:07→18:31)
[2018-06-27 08:00] VITALS: BP 130/85
[2018-06-27] MEDS: Lisinopril 10mg tab ORAL SCH (08:16)
[2018-06-27] MEDS: Methocarbamol 750mg tab ORAL SCH ×4 (08:17→20:36)
[2018-06-27] MEDS: Amiodarone 200mg tab ORAL SCH (08:17)
[2018-06-27] MEDS: Docusate 100mg cap ORAL SCH ×2 (08:17→17:53)
[2018-06-27] MEDS: Spironolactone 25mg tab ORAL SCH (08:17)
[2018-06-27] MEDS: Carvedilol 6.25mg Tab ORAL SCH ×2 (08:18→20:36)
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
[2018-06-27 12:00] VITALS: BP 133/90
[2018-06-27 16:00] VITALS: BP 130/76
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
[2018-06-27 20:00] VITALS: BP 126/72
[2018-06-27] MEDS: Atorvastatin 20mg tab ORAL SCH (20:36)
[2018-06-28] VITALS (7 sets, daily range): BP systolic 95–155; BP diastolic 49–94
[2018-06-28] MEDS: Heparin 25,000u/D5W 500ml 500 ML IV SCH ×2 (02:29→05:32)
[2018-06-28 04:52] LABS: BASOPHILS % (AUTO) 0.9 % (0.0-2.0); EOSINOPHILS % (AUTO) 0.8 % (0.0-3.0); HEMATOCRIT 30.3 % (42.0-52.0); HEMOGLOBIN 9.9 G/DL (14.2-18.0); LYMPHOCYTES % (AUTO) 23.5 % (20.0-45.0); MEAN CORPUSCULAR VOLUME 84 FL (80-99); MONOCYTES % (AUTO) 12.2 % (1.0-10.0); NEUTROPHILS % (AUTO) 62.6 % (45.0-75.0); PLATELET COUNT 260 K/UL (150-450); RED BLOOD COUNT 3.62 M/UL (4.70-6.10); RED CELL DISTRIBUTION WIDTH 12.5 % (11.6-14.8); WHITE BLOOD COUNT 11.3 K/UL (4.8-10.8)
[2018-06-28 05:01] LABS: ANION GAP 8 mmol/L (5-15); BLOOD UREA NITROGEN 13 mg/dL (7-18); CALCIUM 9.5 MG/DL (8.5-10.1); CARBON DIOXIDE 27 MMOL/L (21-32); CHLORIDE 102 MMOL/L (98-107); CREATININE 1.1 MG/DL (0.55-1.30); POTASSIUM 4.1 MMOL/L (3.5-5.1); SODIUM 137 MMOL/L (136-145)
[2018-06-28] MEDS: oxyCONTIN 20mg tab ORAL SCH ×3 (05:31→21:57)
[2018-06-28] MEDS: Methocarbamol 750mg tab ORAL SCH ×4 (09:26→20:08)
[2018-06-28] MEDS: Carvedilol 6.25mg Tab ORAL SCH ×2 (09:27→20:08)
[2018-06-28] MEDS: Docusate 100mg cap ORAL SCH ×2 (09:28→17:50)
[2018-06-28] MEDS: Amiodarone 200mg tab ORAL SCH (09:28)
[2018-06-28] MEDS: Lisinopril 10mg tab ORAL SCH (09:28)
[2018-06-28] MEDS: Spironolactone 25mg tab ORAL SCH (09:28)
--- NOTE | 2018-06-28 09:45 | Diagnostic Imaging Report ---
APPROVED REPORT CPT Code: 28394 Present Symptoms Comments: BILATERAL ARMS PAIN. BILATERAL UPPER EXTREMITY: Imaging reveals patency of the internal jugular, subclavian, axillary and brachial veins. The cephalic and basilic veins are also patent. Doppler indicates normal spontaneous flow within these venous segments, bilaterally.
--- NOTE | 2018-06-28 11:17 | Pulmonology Progress Note ---
Assessment/Plan Problems: (1) AF (paroxysmal atrial fibrillation) (2) Pulmonary embolism (3) Hypertension (4) History of CHF (congestive heart failure) (5) Lumbar stenosis Assessment/Plan doing better wants to go to a rehab facility continue Eliquis heart rate controlled symptomatic treatment pain management. Subjective ROS Limited/Unobtainable: No Constitutional: Reports: no symptoms HEENT: Repors: no symptoms Allergies: Coded Allergies: No Known Allergies (Unverified , 06/22/18) Objective Last 24 Hour Vital Signs Date Time Temp Pulse Resp B/P (MAP) Pulse Ox O2 Delivery O2 Flow Rate FiO2 06/28/18 09:28 120/81 06/28/18 09:27 71 120/81 06/28/18 09:00 Room Air Room Air Room Air Room Air 06/28/18 08:00 97.9 58 18 120/81 (94) 100 97.9 06/28/18 08:00 64 06/28/18 04:00 66 06/28/18 04:00 97.9 66 20 122/65 (84) 99 97.9 06/28/18 00:00 99.6 72 20 155/94 (114) 99 99.6 06/28/18 00:00 72 06/27/18 21:00 Room Air Room Air Room Air Room Air 06/27/18 20:36 78 126/72 06/27/18 20:00 99.5 76 20 126/72 (90) 99 99.5 06/27/18 20:00 76 06/27/18 16:00 98.4 71 20 130/76 (94) 100 98.4 06/27/18 13:40 98.2 06/27/18 12:00 97.9 82 20 133/90 (104) 98 97.9 06/27/18 12:00 79 Intake and Output 06/27/18 06/28/18 19:00 07:00 Intake Total 640.914 ml 488.922 ml Output Total 500 ml 2000 ml Balance 140.914 ml -1511.078 ml Intake Oral 600 ml IV Total 40.914 ml 488.922 ml Output Urine Total 500 ml 2000 ml # Voids 3 # Bowel Movements 1 General Appearance: WD/WN HEENT: normocephalic Respiratory/Chest: chest wall non-tender, lungs clear Cardiovascular: normal peripheral pulses, normal rate Abdomen: normal bowel sounds, soft, non tender Genitourinary: normal external genitalia Extremities: no clubbing Skin: no rash Neurologic/Psychiatric: wet room supervisor II-XII grossly normal Laboratory Tests 06/27/18 12:05: Activated Partial Thromboplast Time 69H 06/28/18 04:13: Activated Partial Thromboplast Time 68H, White Blood Count 11.3H, Red Blood Count 3.62L, Hemoglobin 9.9L, Hematocrit 30.3L, Mean Corpuscular Volume 84, Mean Corpuscular Hemoglobin 27.5, Mean Corpuscular Hemoglobin Concent 32.8, Red Cell Distribution Width 12.5, Platelet Count 260, Mean Platelet Volume 6.3L, Neutrophils (%) (Auto) 62.6, Lymphocytes (%) (Auto) 23.5, Monocytes (%) (Auto) 12.2H, Eosinophils (%) (Auto) 0.8, Basophils (%) (Auto) 0.9, Sodium Level 137, Potassium Level 4.1, Chloride Level 102, Carbon Dioxide Level 27, Anion Gap 8, Blood Urea Nitrogen 13, Creatinine 1.1, Estimat Glomerular Filtration Rate > 60 , Glucose Level 108H, Calcium Level 9.5 Current Medications Medications (Trade) Dose Ordered Sig/Narciso Route PRN Reason Start Time Stop Time Status Last Admin Dose Admin Acetaminophen (Tylenol) 650 mg Q4H PRN ORAL Mild Pain/Temp > 100.5 06/26/18 16:00 07/26/18 15:59 06/26/18 17:14 Amiodarone HCl (Cordarone) 200 mg DAILY ORAL 06/25/18 09:00 07/25/18 08:59 06/28/18 09:28 Apixaban (Eliquis) 5 mg BID ORAL 06/28/18 18:00 07/28/18 17:59 UNV Atorvastatin Calcium (Lipitor) 40 mg BEDTIME ORAL 06/23/18 21:00 07/22/18 20:59 06/27/18 20:36 Carvedilol (Coreg) 6.25 mg EVERY 12 HOURS ORAL 06/24/18 21:00 07/23/18 20:59 06/28/18 09:27 Diazepam (Valium) 5 mg Q6H PRN ORAL muscle spasms 06/23/18 03:30 06/29/18 15:29 06/26/18 04:57 Docusate Sodium (Colace) 100 mg TWICE A DAY ORAL 06/23/18 09:00 07/22/18 17:59 06/28/18 09:28 Hydromorphone HCl (Dilaudid) 2 mg Q2H PRN IVP Breakthrough Hemorroidal Pain 06/26/18 11:00 06/30/18 10:59 06/28/18 07:24 Lisinopril (Zestril) 10 mg DAILY ORAL 06/23/18 09:00 07/23/18 08:59 06/28/18 09:28 Magnesium Hydroxide (Mom) 30 ml HSPRN PRN ORAL Constipation 06/25/18 18:15 07/25/18 18:14 Methocarbamol (Robaxin) 750 mg QID ORAL 06/23/18 09:00 07/22/18 17:59 06/28/18 09:26 Nitroglycerin (Ntg) 0.4 mg Q5M PRN SL Prn Chest Pain 06/23/18 01:35 07/23/18 00:00 Ondansetron HCl (Zofran) 4 mg Q6H PRN IVP Nausea & Vomiting 06/23/18 03:30 07/22/18 15:29 Oxycodone HCl (OxyCONTIN) 20 mg Q8HR ORAL 06/26/18 14:00 07/03/18 13:59 06/28/18 05:31 Spironolactone (Aldactone) 25 mg DAILY ORAL 06/23/18 09:00 07/23/18 08:59 06/28/18 09:28 Patricia Melton MD Jun 28, 2018 11:17
[2018-06-28] MEDS ORDERED: Hydromorphone 0.5mg/0.5ml inj IVP PRN ×3 (11:45→17:30)
[2018-06-28] MEDS ORDERED: HYDROmorphone 2mg tab ORAL PRN ×2 (11:45→14:30)
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
[2018-06-28] MEDS ORDERED: Eliquis 2.5mg tablet ORAL SCH ×2 (15:00→18:00)
--- NOTE | 2018-06-28 15:09 | Cardiology Report ---
APPROVED REPORT EKG Measurement Heart [id number] Atrial fibrillation Nonspecific T wave abnormality Abnormal ECG
[2018-06-28] MEDS ORDERED: Nitroglycerin Subl 0.4mg tab SL PRN (17:30)
[2018-06-28] MEDS ORDERED: Heparin 25,000u/D5W 500ml 500 ML IV SCH (17:30)
[2018-06-28] MEDS ORDERED: Milk of Magnesia 30ml Ud ORAL PRN (17:30)
[2018-06-28] MEDS ORDERED: Lidocaine 1% Plain 30 ml INJ PRN (17:30)
[2018-06-28] MEDS: Eliquis 2.5mg tablet ORAL SCH (17:50)
[2018-06-28] MEDS: Atorvastatin 20mg tab ORAL SCH (20:09)
--- NOTE | 2018-06-28 20:40 | General Progress Note ---
Assessment/Plan Assessment/Plan s/p complex spine surgery perioperative blood loss post op acute pulmonary embolism check venous douplex both legs paroxsymal afib high risk of preioperative bleed. venous douplex both leg is neagtive and he is in sinus rhythm may be able to withold full anticoagulation Subjective Date patient seen: Jun 28, 2018 Time patient seen: 20:37 Allergies: Coded Allergies: No Known Allergies (Unverified , 06/22/18) Subjective he has pain he has some ches tpain no nausea no vomiting Objective Last 24 Hour Vital Signs Date Time Temp Pulse Resp B/P (MAP) Pulse Ox O2 Delivery O2 Flow Rate FiO2 06/28/18 20:08 72 95/49 06/28/18 17:00 98.6 71 20 138/72 (94) 100 98.6 06/28/18 16:00 98.2 62 18 125/63 (83) 99 98.2 06/28/18 13:41 97.9 06/28/18 12:00 98.1 67 18 124/73 (90) 100 98.1 06/28/18 09:28 120/81 06/28/18 09:27 71 120/81 06/28/18 09:00 Room Air Room Air Room Air Room Air 06/28/18 08:00 97.9 58 18 120/81 (94) 100 97.9 06/28/18 08:00 64 06/28/18 04:00 66 06/28/18 04:00 97.9 66 20 122/65 (84) 99 97.9 06/28/18 00:00 99.6 72 20 155/94 (114) 99 99.6 06/28/18 00:00 72 06/27/18 21:00 Room Air Room Air Room Air Room Air Intake and Output 06/27/18 06/28/18 19:00 07:00 Intake Total 640.914 ml 488.922 ml Output Total 500 ml 2000 ml Balance 140.914 ml -1511.078 ml Intake Oral 600 ml IV Total 40.914 ml 488.922 ml Output Urine Total 500 ml 2000 ml # Voids 3 # Bowel Movements 1 Laboratory Tests 06/28/18 04:13: White Blood Count 11.3H, Red Blood Count 3.62L, Hemoglobin 9.9L, Hematocrit 30.3L, Mean Corpuscular Volume 84, Mean Corpuscular Hemoglobin 27.5, Mean Corpuscular Hemoglobin Concent 32.8, Red Cell Distribution Width 12.5, Platelet Count 260, Mean Platelet Volume 6.3L, Neutrophils (%) (Auto) 62.6, Lymphocytes ( %) (Auto) 23.5, Monocytes (%) (Auto) 12.2H, Eosinophils (%) (Auto) 0.8, Basophils (%) (Auto) 0.9, Activated Partial Thromboplast Time 68H, Sodium Level 137, Potassium Level 4.1, Chloride Level 102, Carbon Dioxide Level 27, Anion Gap 8, Blood Urea Nitrogen 13, Creatinine 1.1, Estimat Glomerular Filtration Rate > 60, Glucose Level 108H, Calcium Level 9.5 Height (Feet): 5 Height (Inches): 8.00 Weight (Pounds): 205 General Appearance: WD/WN - no jvd Cardiovascular: normal rate, regular rhythm Respiratory/Chest: other - diminihsed left lower breath sound Lincoln Macias MD Jun 28, 2018 20:40
[2018-06-29] VITALS: BP 101/53
[2018-06-29 04:00] VITALS: BP 94/64
[2018-06-29 04:30] LABS: BASOPHILS % (AUTO) 1.3 % (0.0-2.0); EOSINOPHILS % (AUTO) 0.7 % (0.0-3.0); HEMATOCRIT 31.6 % (42.0-52.0); HEMOGLOBIN 10.5 G/DL (14.2-18.0); LYMPHOCYTES % (AUTO) 21.2 % (20.0-45.0); MEAN CORPUSCULAR VOLUME 84 FL (80-99); NEUTROPHILS % (AUTO) 65.9 % (45.0-75.0); PLATELET COUNT 299 K/UL (150-450); RED BLOOD COUNT 3.78 M/UL (4.70-6.10); RED CELL DISTRIBUTION WIDTH 12.4 % (11.6-14.8); WHITE BLOOD COUNT 11.9 K/UL (4.8-10.8)
[2018-06-29 04:36] LABS: ANION GAP 8 mmol/L (5-15); BLOOD UREA NITROGEN 20 mg/dL (7-18); CALCIUM 9.4 MG/DL (8.5-10.1); CARBON DIOXIDE 27 MMOL/L (21-32); CHLORIDE 103 MMOL/L (98-107); CREATININE 1.1 MG/DL (0.55-1.30); PHOSPHORUS 3.7 MG/DL (2.5-4.9); POTASSIUM 4.1 MMOL/L (3.5-5.1); SODIUM 138 MMOL/L (136-145)
[2018-06-29] MEDS: oxyCONTIN 20mg tab ORAL SCH ×3 (06:31→21:48)
[2018-06-29] MEDS: HYDROmorphone 2mg tab ORAL PRN ×3 (07:34→20:48)
[2018-06-29 08:00] VITALS: BP 135/77
[2018-06-29] MEDS: Carvedilol 6.25mg Tab ORAL SCH ×2 (08:33→20:50)
[2018-06-29] MEDS: Amiodarone 200mg tab ORAL SCH (08:34)
[2018-06-29] MEDS: Lisinopril 10mg tab ORAL SCH (08:34)
[2018-06-29] MEDS: Docusate 100mg cap ORAL SCH ×2 (08:34→17:50)
[2018-06-29] MEDS: Methocarbamol 750mg tab ORAL SCH ×4 (08:35→20:48)
[2018-06-29] MEDS: Eliquis 2.5mg tablet ORAL SCH ×2 (08:35→17:50)
[2018-06-29] MEDS: Spironolactone 25mg tab ORAL SCH (08:35)
[2018-06-29] MEDS ORDERED: Eliquis 2.5mg tablet ORAL SCH (09:00)
[2018-06-29 12:00] VITALS: BP 120/82
--- NOTE | 2018-06-29 12:06 | Pulmonology Progress Note ---
Assessment/Plan Problems: (1) AF (paroxysmal atrial fibrillation) (2) Pulmonary embolism (3) Hypertension (4) History of CHF (congestive heart failure) (5) Lumbar stenosis Assessment/Plan doing better wants to go to a rehab facility continue Eliquis heart rate controlled symptomatic treatment pain management. Subjective ROS Limited/Unobtainable: No Constitutional: Reports: no symptoms HEENT: Repors: no symptoms Respiratory: Reports: no symptoms Allergies: Coded Allergies: No Known Allergies (Unverified , 06/22/18) Objective Last 24 Hour Vital Signs Date Time Temp Pulse Resp B/P (MAP) Pulse Ox O2 Delivery O2 Flow Rate FiO2 06/29/18 09:00 Room Air 06/29/18 08:34 135/77 06/29/18 08:33 74 135/77 06/29/18 08:04 98.1 06/29/18 08:00 98.9 74 20 135/77 (96) 100 98.9 06/29/18 05:15 87 20 97 06/29/18 04:00 98.1 67 19 94/64 (74) 100 98.1 06/29/18 03:12 79 20 98 06/29/18 01:30 81 20 97 06/29/18 00:00 98.2 69 17 101/53 (69) 98 98.2 06/28/18 21:30 Room Air 21 06/28/18 21:30 97 Room Air 21 06/28/18 21:00 Room Air 06/28/18 20:08 72 95/49 06/28/18 20:00 98.2 63 19 95/49 (64) 97 98.2 06/28/18 17:00 98.6 71 20 138/72 (94) 100 98.6 06/28/18 16:00 98.2 62 18 125/63 (83) 99 98.2 06/28/18 13:41 97.9 Intake and Output 06/28/18 06/29/18 19:00 07:00 Intake Total 250 ml 480 ml Output Total 800 ml Balance 250 ml -320 ml Intake Oral 250 ml 480 ml Output Urine Total 800 ml # Voids 2 General Appearance: WD/WN HEENT: normocephalic, atraumatic Respiratory/Chest: chest wall non-tender, lungs clear Cardiovascular: normal peripheral pulses, normal rate Abdomen: normal bowel sounds, soft, non tender Genitourinary: normal external genitalia Skin: no rash Laboratory Tests 06/29/18 04:03: White Blood Count 11.9H, Red Blood Count 3.78L, Hemoglobin 10.5L, Hematocrit 31.6L, Mean Corpuscular Volume 84, Mean Corpuscular Hemoglobin 27.8, Mean Corpuscular Hemoglobin Concent 33.2, Red Cell Distribution Width 12.4, Platelet Count 299, Mean Platelet Volume 5.7L, Neutrophils (%) (Auto) 65.9, Lymphocytes ( %) (Auto) 21.2, Monocytes (%) (Auto) 11.0H, Eosinophils (%) (Auto) 0.7, Basophils (%) (Auto) 1.3, Activated Partial Thromboplast Time 25, Sodium Level 138, Potassium Level 4.1, Chloride Level 103, Carbon Dioxide Level 27, Anion Gap 8, Blood Urea Nitrogen 20H, Creatinine 1.1, Estimat Glomerular Filtration Rate > 60, Glucose Level 113H, Calcium Level 9.4, Phosphorus Level 3.7, Magnesium Level 1.9 Current Medications Medications (Trade) Dose Ordered Sig/Narciso Route PRN Reason Start Time Stop Time Status Last Admin Dose Admin Acetaminophen (Tylenol) 650 mg Q4H PRN ORAL Mild Pain/Temp > 100.5 06/28/18 17:30 07/26/18 17:29 Amiodarone HCl (Cordarone) 200 mg DAILY ORAL 06/29/18 09:00 07/29/18 08:59 06/29/18 08:34 Apixaban (Eliquis) 5 mg BID ORAL 06/28/18 18:00 07/28/18 17:59 06/29/18 08:35 Atorvastatin Calcium (Lipitor) 40 mg BEDTIME ORAL 06/28/18 21:00 07/22/18 20:59 06/28/18 20:09 Carvedilol (Coreg) 6.25 mg EVERY 12 HOURS ORAL 06/28/18 21:00 07/23/18 20:59 06/29/18 08:33 Diazepam (Valium) 5 mg Q6H PRN ORAL muscle spasms 06/28/18 17:30 06/29/18 17:29 Docusate Sodium (Colace) 100 mg TWICE A DAY ORAL 06/28/18 18:00 07/22/18 17:59 06/29/18 08:34 Hydromorphone HCl (Dilaudid) 0.5 mg Q3H PRN IVP Severe Pain (Pain Scale 7-10) 06/28/18 17:30 07/05/18 14:29 Hydromorphone HCl (Dilaudid) 2 mg Q2H PRN ORAL Severe Pain (Pain Scale 7-10) 06/28/18 17:30 07/05/18 17:29 06/29/18 07:34 Lisinopril (Zestril) 10 mg DAILY ORAL 06/29/18 09:00 07/29/18 08:59 06/29/18 08:34 Magnesium Hydroxide (Mom) 30 ml HSPRN PRN ORAL Constipation 06/28/18 17:30 07/25/18 17:29 Methocarbamol (Robaxin) 750 mg QID ORAL 06/28/18 18:00 07/22/18 17:59 06/29/18 08:35 Nitroglycerin (Ntg) 0.4 mg Q5M PRN SL Prn Chest Pain 06/28/18 17:30 07/23/18 00:00 Ondansetron HCl (Zofran) 4 mg Q6H PRN IVP Nausea & Vomiting 06/28/18 17:30 07/22/18 17:29 Oxycodone HCl (OxyCONTIN) 20 mg Q8HR ORAL 06/28/18 22:00 07/03/18 21:59 06/29/18 06:31 Spironolactone (Aldactone) 25 mg DAILY ORAL 06/29/18 09:00 07/29/18 08:59 06/29/18 08:35 Patricia Melton MD Jun 29, 2018 12:06
[2018-06-29 16:00] VITALS: BP 128/84
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
[2018-06-29 20:00] VITALS: BP 109/76
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
[2018-06-29] MEDS: Atorvastatin 20mg tab ORAL SCH (20:48)
[2018-06-29] MEDS ORDERED: DiphenhydrAMINE 50mg/ml Inj IVP PRN (21:45)
[2018-06-30] MEDS: HYDROmorphone 2mg tab ORAL PRN (00:50)
[2018-06-30 04:00] VITALS: BP 135/68
[2018-06-30] MEDS: oxyCONTIN 20mg tab ORAL SCH ×2 (05:54→14:22)
[2018-06-30 07:25] LABS: EOSINOPHILS % (AUTO) 1.2 % (0.0-3.0); HEMATOCRIT 30.4 % (42.0-52.0); LYMPHOCYTES % (AUTO) 22.5 % (20.0-45.0); MEAN CORPUSCULAR VOLUME 83 FL (80-99); NEUTROPHILS % (AUTO) 64.3 % (45.0-75.0); PLATELET COUNT 354 K/UL (150-450); RED BLOOD COUNT 3.64 M/UL (4.70-6.10); RED CELL DISTRIBUTION WIDTH 12.7 % (11.6-14.8); WHITE BLOOD COUNT 11.7 K/UL (4.8-10.8)
[2018-06-30 07:54] LABS: ALANINE AMINOTRANSFERASE 70 U/L (12-78); ALBUMIN 2.6 G/DL (3.4-5.0); ALBUMIN/GLOBULIN RATIO 0.6 (1.0-2.7); ALKALINE PHOSPHATASE 67 U/L (46-116); ANION GAP 5 mmol/L (5-15); ASPARTATE AMINO TRANSFERASE 48 U/L (15-37); BILIRUBIN,TOTAL 0.4 MG/DL (0.2-1.0); BLOOD UREA NITROGEN 18 mg/dL (7-18); CARBON DIOXIDE 30 MMOL/L (21-32); CHLORIDE 104 MMOL/L (98-107); CREATININE 1.1 MG/DL (0.55-1.30); PHOSPHORUS 3.4 MG/DL (2.5-4.9); POTASSIUM 4.5 MMOL/L (3.5-5.1); SODIUM 139 MMOL/L (136-145)
[2018-06-30 08:00] VITALS: BP 99/68
[2018-06-30] MEDS: Methocarbamol 750mg tab ORAL SCH ×2 (08:39→14:22)
[2018-06-30] MEDS: Eliquis 2.5mg tablet ORAL SCH (08:40)
[2018-06-30] MEDS: Docusate 100mg cap ORAL SCH (08:40)
[2018-06-30] MEDS: Spironolactone 25mg tab ORAL SCH (09:00)
[2018-06-30] MEDS: Lisinopril 10mg tab ORAL SCH (09:00)
[2018-06-30] MEDS: Carvedilol 6.25mg Tab ORAL SCH (09:00)
[2018-06-30] MEDS: Amiodarone 200mg tab ORAL SCH (09:00)
[2018-06-30 12:00] VITALS: BP 131/68
--- NOTE | 2018-06-30 12:07 | Diagnostic Imaging Report ---
Indication: Bilateral leg pain Technique: Grayscale and duplex images of the bilateral lower extremity veins Comparison: none Findings: Bilaterally, grayscale and duplex images demonstrate no evidence of intraluminal thrombus. Normal phasic Doppler waveforms. Normal compressibility of all deep venous structures. Impression: Negative for bilateral lower extremity deep venous thrombosis This agrees with the preliminary interpretation provided overnight by [facility] teleradiology service.
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
--- NOTE | 2018-07-03 16:06 | Cardiology Report ---
APPROVED REPORT EKG Measurement Heart [id number] Sinus rhythm with 1st degree AV block with premature atrial complexes Cannot rule out Anterior infarct, age undetermined Abnormal ECG
--- NOTE | 2018-07-03 16:07 | Cardiology Report ---
APPROVED REPORT EKG Measurement Heart [id number] Sinus rhythm with premature atrial complexes Nonspecific T wave abnormality Abnormal ECG
== END 2018-06-30 16:15 | disposition home or self-care (01) | DRG 453 ==
LOC: SDSOVERFLO 05:12 → 3E 17:00 → ICU 06-23 00:20 → 2E 06-25 19:56 → 3E 06-28 17:26
PROC: 0SG10AJ Fusion of 2 or more Lumbar Vertebral Joints with Interbody Fusion Device, Posterior Approach, Anterior Column, Open Approach (ICD-10-PCS; principal; 2018-06-22 07:30)
PROC: 0ST20ZZ Resection of Lumbar Vertebral Disc, Open Approach (ICD-10-PCS; principal; 2018-06-22 07:30)
PROC: 0QB30ZZ Excision of Left Pelvic Bone, Open Approach (ICD-10-PCS; principal; 2018-06-22 07:30)
PROC: 3E0U3BZ Introduction of Anesthetic Agent into Joints, Percutaneous Approach (ICD-10-PCS; principal; 2018-06-22 07:30)
PROC: 0ST40ZZ Resection of Lumbosacral Disc, Open Approach (ICD-10-PCS; principal; 2018-06-22 07:30)
PROC: 0SG30AJ Fusion of Lumbosacral Joint with Interbody Fusion Device, Posterior Approach, Anterior Column, Open Approach (ICD-10-PCS; principal; 2018-06-22 07:30)
PROC: 0SG1071 Fusion of 2 or more Lumbar Vertebral Joints with Autologous Tissue Substitute, Posterior Approach, Posterior Column, Open Approach (ICD-10-PCS; principal; 2018-06-22 07:30)
PROC: 4A11X4G Monitoring of Peripheral Nervous Electrical Activity, Intraoperative, External Approach (ICD-10-PCS; principal; 2018-06-22 07:30)
PROC: 30243N1 Transfusion of Nonautologous Red Blood Cells into Central Vein, Percutaneous Approach (ICD-10-PCS; 2018-06-26)
DX: M48.061 Spinal stenosis, lumbar region without neurogenic claudication (principal); I26.99 Other pulmonary embolism without acute cor pulmonale; I50.30 Unspecified diastolic (congestive) heart failure; I42.9 Cardiomyopathy, unspecified; M43.16 Spondylolisthesis, lumbar region; M43.17 Spondylolisthesis, lumbosacral region; M54.16 Radiculopathy, lumbar region; M54.17 Radiculopathy, lumbosacral region; M48.07 Spinal stenosis, lumbosacral region; I11.0 Hypertensive heart disease with heart failure; G47.33 Obstructive sleep apnea (adult) (pediatric); I48.0 Paroxysmal atrial fibrillation; I49.1 Atrial premature depolarization; G89.18 Other acute postprocedural pain; E87.5 Hyperkalemia; N28.9 Disorder of kidney and ureter, unspecified; D64.9 Anemia, unspecified
CPT/HCPCS: 36415; 71045; 71275; 72020; 76001; 78579; 78580; 80048; 80053; 80307; 83735; 84100; 84484; 85007; 85025; 85610; 85730; 86850; 86900; 86901; 86920; 87081; 93005; 93306; 93970; 94003; 94150; 94760; A9503; J0282; J2405; J2710